=== PATIENT | male | born 1975 | race Caucasian/White ===

== ENCOUNTER 2023-10-12 05:46 | Emergency (ER) | payer OTHER ==
[~2023-10-12] VITALS: Ht 193 cm; Wt 120.0 kg
[~2023-10-12 05:46] MED LIST: ALEVE220 MG PO; NORCO 7.5-3251 EACH PO
[2023-10-12] MEDS ORDERED: CLEOCIN HCL300 MG PO (07:14)
[2023-10-12] MEDS ORDERED: clindamycin HCL 300 MG HOME.PACK PO ONE (07:15)
[2023-10-12 07:20] VITALS: BP 139/94
== END 2023-10-12 07:20 | disposition home or self-care (01) ==
LOC: ED 05:46
DX: S02.2XXB Fracture of nasal bones, initial encounter for open fracture (principal); W01.198A Fall on same level from slipping, tripping and stumbling with subsequent striking against other object, initial encounter; Z88.0 Allergy status to penicillin
CPT/HCPCS: 12013; 70486; 99283-25

== ENCOUNTER 2024-04-05 09:46 | Emergency (ER) | payer OTHER ==
[~2024-04-05] VITALS: Ht 193 cm; Wt 116.6 kg
[~2024-04-05 09:46] MED LIST changes: +CLEOCIN HCL300 MG PO
[2024-04-05] MEDS ORDERED: ondansetron HCL 4 MG/2 ML VIAL IV ONE (10:00)
[2024-04-05] MEDS ORDERED: DIPHENOXYLATE/ATROPINE 1 EA TAB PO ONE (10:00)
[2024-04-05] MEDS ORDERED: SODIUM CHLORIDE 0.9% 1,000 ML IV ONE (10:00)
[2024-04-05 10:14] LABS: BASOPHILS 0.7 % (0-2); EOSINOPHILS 0.6 % (0-6); HEMATOCRIT 48.1 % (35.0-50.0); HEMOGLOBIN 17.6 g/dL (12.0-18.0); LYMPHOCYTES 26.3 % (24-44); MCH 32.3 (27-36); MCHC 36.6 g/dl (30-36); MCV 88.3 fl (81-99); MONOCYTES 20.1 % (0-12); NEUTROPHILS 52.3 % (39-80); PLATELET COUNT 282 K/uL (140-440); RBC 5.45 M/ul (4.3-5.7); RDW 13.6 (10.5-15.0)
[2024-04-05] MEDS ORDERED: LORazepam 2 MG/ML VIAL IV ONE (10:15)
[2024-04-05 10:28] LABS: ALBUMIN 3.7 g/dL (3.4-5.0); ALBUMIN/GLOBULIN RATIO 0.82 (1.1-2.4); ANION GAP 16.9 (7-21); BILIRUBIN, TOTAL 1.8 mg/dL (0.2-1.0); BUN/CREATININE RATIO 22.5 (6.0-28.6); CALCIUM 9.3 mg/dL (8.5-10.1); CREATININE, SERUM 1.2 mg/dL (0.70-1.30); MAGNESIUM 2.5 mg/dL (1.8-2.4); POTASSIUM 2.9 mmol/L (3.5-5.1); PROTEIN, TOTAL 8.2 g/dL (6.4-8.2)
[2024-04-05] MEDS ORDERED: POTASSIUM CHLORIDE 10 MEQ/100 ML BAG IV ONE (10:45)
[2024-04-05] MEDS ORDERED: POTASSIUM CHLORIDE 10 MEQ TABCR PO ONE (10:45)
[2024-04-05] MEDS ORDERED: LOMOTIL TABLET1 EACH PO (11:32)
[2024-04-05] MEDS ORDERED: ONDANSETRON ODT8 MG PO (11:32)
[2024-04-05 12:01] VITALS: BP 144/84
== END 2024-04-05 12:02 | disposition home or self-care (01) ==
LOC: ED 09:46
PROVIDERS: Emergency Medicine
DX: K52.9 Noninfective gastroenteritis and colitis, unspecified (principal); E87.6 Hypokalemia; Z88.0 Allergy status to penicillin
CPT/HCPCS: 36415; 80053; 83690; 83735; 85025; 87045; 87046; 87177; 96374; 96375; 99284-25; A9270; J2060; J2405; J3480; J7030

== ENCOUNTER 2024-04-07 15:19 | Emergency (ER) | payer OTHER ==
[~2024-04-07] VITALS: Ht 193 cm; Wt 113.9 kg
[~2024-04-07 15:19] MED LIST changes: +LOMOTIL TABLET1 EACH PO; +ONDANSETRON ODT8 MG PO
--- OUTSIDE RECORDS SUMMARY | 2024-04-07 15:22 | XMS ---
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 Jasmin has no Care Guidelines for this patient. [facility] (12 MO.) [facility] NOTE: Visits indicate total known visits. ED/C VISIT TRACKING (12 MO.) [facility] COMPLAINT: - COLD SYMPTOMS 04/05/2024 09:46 [facility] [place] TYPE: Emergency COMPLAINT: - VOMITTING DIARRHEA 10/12/2023 05:46 [facility] [place] TYPE: Emergency COMPLAINT: - NOSE INJURY DIAGNOSES: - Allergy status to penicillin - Fall on same level from slipping, tripping and stumbling with subsequent striking against other object, initial encounter - Fracture of nasal bones, initial encounter for open fracture - Laceration without foreign body of nose, initial encounter INPATIENT VISIT TRACKING (12 MO.) No inpatient visits to display in this time frame [email or web address]
[2024-04-07] MEDS ORDERED: DIPHENOXYLATE-1 EACH PO (15:34)
[2024-04-07 15:59] LABS: BASOPHILS 0.7 % (0-2); EOSINOPHILS 0.7 % (0-6); HEMATOCRIT 46.9 % (35.0-50.0); HEMOGLOBIN 16.8 g/dL (12.0-18.0); LYMPHOCYTES 16.1 % (24-44); MCH 31.7 (27-36); MCHC 35.8 g/dl (30-36); MCV 88.4 fl (81-99); MONOCYTES 13.5 % (0-12); PLATELET COUNT 356 K/uL (140-440); RDW 13.3 (10.5-15.0)
[2024-04-07] MEDS ORDERED: LACTATED RINGER'S 1,000 ML IV ONE (16:00)
[2024-04-07] MEDS ORDERED: ondansetron HCL 4 MG/2 ML VIAL IV ONE (16:15)
[2024-04-07] MEDS ORDERED: SODIUM CHLORIDE 0.9% 1,000 ML IV PRN (16:15)
[2024-04-07 16:25] LABS: ALBUMIN 3.8 g/dL (3.4-5.0); ALBUMIN/GLOBULIN RATIO 0.84 (1.1-2.4); BILIRUBIN, TOTAL 1.8 mg/dL (0.2-1.0); BUN/CREATININE RATIO 14.4 (6.0-28.6); CALCIUM 9.2 mg/dL (8.5-10.1); CREATININE, SERUM 1.18 mg/dL (0.70-1.30); MAGNESIUM 2.1 mg/dL (1.8-2.4); PROTEIN, TOTAL 8.3 g/dL (6.4-8.2)
[2024-04-07 16:44] LABS: BILIRUBIN, URINE POSITIVE (negative); BLOOD/HGB, URINE NEGATIVE (Negative); KETONE, URINE NEGATIVE (Negative); LEUK ESTERASE, URINE NEGATIVE (negative); NITRITE, URINE NEGATIVE (negative)
[2024-04-07 16:49] LABS: LACTIC ACID, BLOOD 1.7 mmol/L (0.4-2.0)
[2024-04-07 16:50] LABS: BACTERIA, URINE NONE SEEN /hpf (negative); CASTS, URINE HYALINE 1+ \\lpf; COLLECTION TYPE, URINE CLEAN CATCH; CRYSTALS, URINE NONE SEEN (0-1+); EPITHELIAL CELLS, URINE NONE SEEN /lpf (0-1+); RED BLOOD CELLS, URINE 0-1 /hpf (0-5); REFLEX CULTURE, URINE No (No)
[2024-04-07] MEDS ORDERED: POTASSIUM CHLORIDE 20 MEQ/15 ML CUP PO ONE (17:45)
[2024-04-07] MEDS ORDERED: REGLAN10 MG PO (18:37)
[2024-04-07] MEDS ORDERED: ONDANSETRON ODT8 MG PO (18:37)
[2024-04-07] MEDS ORDERED: DICYCLOMINE HCL20 MG PO (18:37)
[2024-04-07 19:10] VITALS: BP 145/89
== END 2024-04-07 19:10 | disposition home or self-care (01) ==
LOC: ED 15:19
PROVIDERS: Emergency Medicine
DX: K52.9 Noninfective gastroenteritis and colitis, unspecified (principal); E87.6 Hypokalemia; R74.01 Elevation of levels of liver transaminase levels; E80.7 Disorder of bilirubin metabolism, unspecified; Z88.0 Allergy status to penicillin; Z79.899 Other long term (current) drug therapy
CPT/HCPCS: 36415; 74177; 80053; 81001; 83605; 83735; 85025; 87045; 87046; 87177; 96361; 99284-25; A9270; J2405; J7030; J7121